=== PATIENT | male | born 1965 | race Caucasian/White ===

== ENCOUNTER → 2017-01-14 | Outpatient (CLI) | payer MEDICAID, MEDICARE ==
[2017-01-15 13:14] LABS: Gliadin AB IgA, Deaminated 8 UNITS (<20); Gliadin AB IgG, Deaminated 2 UNITS (<20)
== END | disposition home or self-care (01) ==
LOC: EEVIPCON 14:22 → LABWHC1 14:22
PROVIDERS: ATTEND Internal Medicine Gastroenterology
DX: K52.9 Noninfective gastroenteritis and colitis, unspecified (principal)
CPT/HCPCS: 36415; 83516; 86140